=== PATIENT | male | born 1950 | race Caucasian/White ===

== ENCOUNTER 2018-08-19 11:21 | Inpatient (IN) | payer MEDICARE, OTHER ==
[~2018-08-19] VITALS: Ht 170.2 cm; Wt 73.5 kg
[2018-08-19] VITALS (13 sets, daily range): BP systolic 109–137; BP diastolic 62–73
[2018-08-19] MEDS ORDERED: aspirin 81mg tab.chew PO ONE ×2 (11:30→14:20)
[2018-08-19] MEDS ORDERED: heparin 10,000 units/1 ML INJ IV ONE ×2 (11:30→11:45)
[2018-08-19] MEDS ORDERED: nitroGLYCERIN 0.4mg SUBLingual tab SL PRN ×2 (11:30→14:05)
[2018-08-19] MEDS ORDERED: heparin 10,000 units/1 ML INJ IV PRN (11:30)
[2018-08-19 11:37] LABS: BASOPHILS % (AUTO) 0.3 % (0-1); EOSINOPHILS # (AUTO) 0.2 X10'3 (0-0.9); EOSINOPHILS % (AUTO) 2.1 % (0-6); HEMATOCRIT 45.3 % (42.0-52.0); HEMOGLOBIN 15.1 g/dl (14.0-17.9); LYMPHOCYTES # (AUTO) 3.1 X10'3 (1.1-4.8); LYMPHOCYTES % (AUTO) 42.8 % (21-51); MEAN CORPUSCULAR HEMOGLOBIN 31.3 PG (27.0-31.0); MEAN CORPUSCULAR HGB CONC 33.4 % (33.0-36.5); MEAN CORPUSCULAR VOLUME 93.8 FL (78-98); MONOCYTES # (AUTO) 0.6 X10'3 (0-0.9); MONOCYTES % (AUTO) 7.7 % (2-12); NEUTROPHILS # (AUTO) 3.4 X10'3 (1.8-7.7); NEUTROPHILS % (AUTO) 47.1 % (42-75); PLATELET COUNT 256 X10'3 (140-440); RED BLOOD COUNT 4.82 X10'6 (4.70-6.10); RED CELL DISTRIBUTION WIDTH 15.2 % (11.5-14.5); WHITE BLOOD COUNT 7.2 X10'3 (4.5-11.0)
[2018-08-19] MEDS ORDERED: iohexol 350 MG/1 ML 200ml bottle ONE (11:39)
[2018-08-19] MEDS ORDERED: iohexol 350 MG/ML 50ML vial IV ONE (11:39)
[2018-08-19] MEDS ORDERED: LIDOcaine 1% (10mg/ml)w/preservative injection 20ml MDV ONE (11:39)
[2018-08-19] MEDS ORDERED: ondansetron/PF 4mg/2ml inj IV ONE (11:40)
[2018-08-19] MEDS ORDERED: morphine 4 MG/ML inj SYRINge IV ONE (11:40)
[2018-08-19] MEDS: heparin 25,000 UNIT/250ml bag 250 ML IV SCH (11:43)
[2018-08-19] MEDS ORDERED: tirofiban 5mg in NS 100mL 100 ML IV ONE (12:08)
[2018-08-19] MEDS ORDERED: fentaNYL/PF 50MCG/1 ML 2ML syringe ONE (12:08)
[2018-08-19] MEDS ORDERED: midazolam 2 mg/2 ml injection ONE (12:08)
[2018-08-19 12:09] LABS: PARTIAL THROMBOPLASTIN TIME 23 SECONDS (22-32)
[2018-08-19 12:15] LABS: ALANINE AMINOTRANSFERASE 26 U/L (12-78); ALBUMIN 3.8 G/DL (3.4-5.0); ALBUMIN/GLOBULIN RATIO 1.1 (1.1-1.5); ALKALINE PHOSPHATASE 94 IU/L (46-116); ANION GAP 10 (8-16); ASPARTATE AMINO TRANSFERASE 25 U/L (10-37); BILIRUBIN,TOTAL 0.9 MG/DL (0.1-1.0); BLOOD UREA NITROGEN 10 MG/DL (7-18); BUN/CREATININE RATIO 11.6 (5.4-32.0); CALCIUM 8.6 MG/DL (8.5-10.1); CHLORIDE 104 MMOL/L (99-107); CREATININE 0.86 MG/DL (0.60-1.10); GLUCOSE 174 MG/DL (70-104); SODIUM 142 MMOL/L (135-145); TOTAL CARBON DIOXIDE 27.7 MMOL/L (24-32); TOTAL PROTEIN 7.3 G/DL (6.4-8.2); eGFR 88 ML/MIN
[2018-08-19 12:17] LABS: POTASSIUM 3.8 MMOL/L (3.5-5.1)
[2018-08-19 12:22] LABS: CHOLESTEROL 156 MG/DL (0-200); HDL CHOLESTEROL 52 MG/DL (35-60); LDL CHOLESTEROL 92 MG/DL (50-100); MAGNESIUM 2.1 MG/DL (1.5-2.4); TRIGLYCERIDES 91 MG/DL (20-135)
[2018-08-19] MEDS ORDERED: heparin 1,000unit/ml 10ml vial 10 ML ONE (12:30)
[2018-08-19] MEDS ORDERED: clopidogrel 300mg tablet ONE (13:13)
[2018-08-19] MEDS ORDERED: cyclobenzaprine 10mg tablet PO PRN (14:05)
[2018-08-19] MEDS ORDERED: acetaminophen 325mg tablet PO PRN (14:05)
[2018-08-19] MEDS ORDERED: magnesium hydroxide 30ml (MOM) UD suspension PO PRN (14:05)
[2018-08-19] MEDS ORDERED: proCHLORperazine 10 MG/2 ml inj IV PRN (14:05)
[2018-08-19] MEDS ORDERED: OXAZEpam 15mg capsule PO PRN (14:05)
[2018-08-19] MEDS ORDERED: morphine 4 MG/ML inj SYRINge IV PRN ×2 (14:25→18:55)
[2018-08-19] MEDS: tirofiban 5mg in NS 100mL 100 ML IV SCH ×2 (14:32→22:05)
[2018-08-19] MEDS: sodium chloride 0.45% 1,000 ML IV SCH (14:33)
[2018-08-19] MEDS ORDERED: nitroGLYCERIN-Tridil 50MG/D5W 250 ML IV SCH (15:10)
[2018-08-19] MEDS ORDERED: MESSAGE TO NURSING PO ONE (15:30)
[2018-08-19 16:29] LABS: HEMATOCRIT 43.2 % (42.0-52.0); HEMOGLOBIN 14.4 g/dl (14.0-17.9); MEAN CORPUSCULAR HEMOGLOBIN 31.3 PG (27.0-31.0); MEAN CORPUSCULAR HGB CONC 33.3 % (33.0-36.5); MEAN CORPUSCULAR VOLUME 93.9 FL (78-98); MEAN PLATELET VOLUME 7.8 FL (7.4-10.4); PLATELET COUNT 230 X10'3 (140-440); RED CELL DISTRIBUTION WIDTH 14.9 % (11.5-14.5); WHITE BLOOD COUNT 12.3 X10'3 (4.5-11.0)
[2018-08-19 16:52] LABS: PROTHROMBIN TIME 10.5 SECONDS (9.0-12.0)
[2018-08-19 16:54] LABS: PARTIAL THROMBOPLASTIN TIME 86 SECONDS (22-32)
[2018-08-19] MEDS ORDERED: FOLI0.4T2 PO (17:23)
[2018-08-19] MEDS ORDERED: METH2.5T PO (17:23)
[2018-08-19] MEDS ORDERED: ASPI-611 PO (17:23)
[2018-08-19] MEDS ORDERED: FINA5TAB11 PO (17:23)
[2018-08-19] MEDS ORDERED: FLO0.4C PO (17:23)
[2018-08-19] MEDS ORDERED: clopidogrel 300mg tablet PO ONE (18:00)
[2018-08-19 18:06] LABS: CLARITY,URINE CLEAR (Clear); COLOR,URINE YELLOW (Yellow); GLUCOSE, URINE NEGATIVE (Neg); KETONES,URINE 40 mg/dl (Neg); LEUKOCYTE ESTERASE ,URINE NEGATIVE (Neg); NITRITES, URINE NEGATIVE (Neg); OCCULT BLOOD,URINE LARGE (Neg); PH,URINE 5.5 (4.8-8.0); PROTEIN,URINE NEGATIVE (Neg); UA COLLECTION TYPE NON-SPECIFIED; UROBILINOGEN,URINE 0.2 E.U/dL (0.2-1.0)
[2018-08-19 18:12] LABS: BACTERIA,URINE NONE SEEN /HPF (Neg); MUCUS STRANDS NONE SEEN /LPF (Neg); RBC,URINE 0-2 /HPF (0-2); SQUAMOUS EPITHELIAL CELL,UR NONE SEEN /LPF (FEW); WBC,URINE NONE SEEN /HPF (0-4)
[2018-08-19] MEDS ORDERED: nitroGLYCERIN-Tridil 50MG/D5W 250 ML IV PRN (19:43)
[2018-08-19] MEDS ORDERED: HYDROcodone/acetaminophen 10/325mg tab PO PRN (20:00)
[2018-08-19] MEDS: metoprolol tartrate 25mg tablet PO SCH (20:00)
[2018-08-19] MEDS: docusate sod 100mg capsule PO SCH (20:00)
[2018-08-19] MEDS: HYDROcodone/acetaminophen 10/325mg tab PO PRN (22:07)
[2018-08-20] VITALS (24 sets, daily range): BP systolic 91–126; BP diastolic 50–68
[2018-08-20] MEDS: heparin 25,000 UNIT/250ml bag 250 ML IV SCH (00:44)
[2018-08-20] MEDS: HYDROcodone/acetaminophen 10/325mg tab PO PRN ×2 (04:52→20:40)
[2018-08-20] MEDS: tirofiban 5mg in NS 100mL 100 ML IV SCH ×3 (05:12→20:36)
[2018-08-20 05:29] LABS: BASOPHILS % (AUTO) 0.3 % (0-1); EOSINOPHILS # (AUTO) 0.1 X10'3 (0-0.9); EOSINOPHILS % (AUTO) 1.4 % (0-6); HEMATOCRIT 38.9 % (42.0-52.0); HEMOGLOBIN 13.2 g/dl (14.0-17.9); LYMPHOCYTES # (AUTO) 1.5 X10'3 (1.1-4.8); LYMPHOCYTES % (AUTO) 15.2 % (21-51); MEAN CORPUSCULAR HEMOGLOBIN 31.3 PG (27.0-31.0); MEAN CORPUSCULAR VOLUME 92.1 FL (78-98); MEAN PLATELET VOLUME 8.2 FL (7.4-10.4); MONOCYTES # (AUTO) 0.5 X10'3 (0-0.9); MONOCYTES % (AUTO) 4.7 % (2-12); NEUTROPHILS # (AUTO) 7.7 X10'3 (1.8-7.7); NEUTROPHILS % (AUTO) 78.4 % (42-75); PLATELET COUNT 241 X10'3 (140-440); RED BLOOD COUNT 4.22 X10'6 (4.70-6.10); RED CELL DISTRIBUTION WIDTH 15.2 % (11.5-14.5); WHITE BLOOD COUNT 9.8 X10'3 (4.5-11.0)
[2018-08-20] MEDS ORDERED: vancomycin/NS 1 GM ADD-VANTAGE 250 ML IV ONE (05:30)
[2018-08-20] MEDS: insulin Lispro (HumaLOG) vial - multi-dose SQ SCH ×3 (05:30→18:00)
[2018-08-20] MEDS ORDERED: dextrose 50%-water 50ml dispensing syringe IV PRN (05:30)
[2018-08-20] MEDS: insulin regular, human inj. 100 UNITS in normal saline 100ml IV soln 100 ML IV SCH ×2 (05:30)
[2018-08-20] MEDS ORDERED: MESSAGE TO NURSING PO ONE ×5 (05:30)
[2018-08-20] MEDS ORDERED: cefazolin/dext.iso 2gm/100ml 100 ML IV ONE (05:30)
[2018-08-20 06:01] LABS: ALBUMIN 3.1 G/DL (3.4-5.0); ANION GAP 11 (8-16); BLOOD UREA NITROGEN 10 MG/DL (7-18); BUN/CREATININE RATIO 14.1 (5.4-32.0); CHLORIDE 103 MMOL/L (99-107); CREATININE 0.71 MG/DL (0.60-1.10); GLUCOSE 166 MG/DL (70-104); POTASSIUM 3.6 MMOL/L (3.5-5.1); SODIUM 138 MMOL/L (135-145); eGFR > 90 ML/MIN
[2018-08-20] MEDS: mupirocin 2% nasal ointment 1gm UD NS SCH ×2 (08:00→20:00)
[2018-08-20] MEDS: aspirin 81mg tablet.DR PO SCH (08:00)
[2018-08-20] MEDS ORDERED: clopidogrel 75mg tablet PO SCH (08:00)
[2018-08-20] MEDS: metoprolol tartrate 25mg tablet PO SCH ×2 (08:00→20:00)
[2018-08-20] MEDS: docusate sod 100mg capsule PO SCH ×2 (08:47→20:00)
[2018-08-20] MEDS: lisinopril 2.5mg tablet PO SCH (08:48)
[2018-08-20] MEDS: atorvastatin 10mg tablet PO SCH (08:48)
[2018-08-20] MEDS: sodium chloride 0.45% 1,000 ML IV SCH (10:10)
[2018-08-20] MEDS ORDERED: FINA5TAB11 PO (13:14)
[2018-08-20] MEDS ORDERED: ASPI-611 PO (13:14)
[2018-08-20] MEDS ORDERED: METH2.5T PO (13:14)
[2018-08-20] MEDS ORDERED: FOL0.4T PO (13:14)
[2018-08-20] MEDS ORDERED: FLO0.4C PO (13:14)
[2018-08-21] VITALS (20 sets, daily range): BP systolic 90–141; BP diastolic 46–88
[2018-08-21] MEDS: sodium chloride 0.45% 1,000 ML IV SCH (05:25)
[2018-08-21] MEDS: tirofiban 5mg in NS 100mL 100 ML IV SCH ×3 (05:26→19:33)
[2018-08-21] MEDS: insulin regular, human inj. 100 UNITS in normal saline 100ml IV soln 100 ML IV SCH ×2 (05:30)
[2018-08-21] MEDS: lisinopril 2.5mg tablet PO SCH (08:00)
[2018-08-21] MEDS: metoprolol tartrate 25mg tablet PO SCH ×2 (08:00→20:43)
[2018-08-21] MEDS: insulin Lispro (HumaLOG) vial - multi-dose SQ SCH ×3 (09:00→18:00)
[2018-08-21] MEDS: docusate sod 100mg capsule PO SCH ×2 (09:22→20:00)
[2018-08-21] MEDS: atorvastatin 10mg tablet PO SCH (09:22)
[2018-08-21] MEDS: aspirin 81mg tablet.DR PO SCH (09:22)
[2018-08-21] MEDS ORDERED: heparin 25,000 UNIT/250ml bag 250 ML IV SCH (10:50)
[2018-08-21] MEDS ORDERED: heparin 10,000 units/1 ML INJ IV ONE (10:50)
[2018-08-21 12:07] LABS: BASOPHILS # (AUTO) 0.1 X10'3 (0-0.2); BASOPHILS % (AUTO) 0.8 % (0-1); EOSINOPHILS % (AUTO) 0.5 % (0-6); HEMATOCRIT 39.4 % (42.0-52.0); HEMOGLOBIN 13.2 g/dl (14.0-17.9); LYMPHOCYTES # (AUTO) 1.9 X10'3 (1.1-4.8); LYMPHOCYTES % (AUTO) 24.9 % (21-51); MEAN CORPUSCULAR HEMOGLOBIN 31.4 PG (27.0-31.0); MEAN CORPUSCULAR HGB CONC 33.6 % (33.0-36.5); MEAN CORPUSCULAR VOLUME 93.5 FL (78-98); MEAN PLATELET VOLUME 8.3 FL (7.4-10.4); MONOCYTES # (AUTO) 0.6 X10'3 (0-0.9); MONOCYTES % (AUTO) 7.9 % (2-12); NEUTROPHILS # (AUTO) 5.1 X10'3 (1.8-7.7); NEUTROPHILS % (AUTO) 65.9 % (42-75); PLATELET COUNT 213 X10'3 (140-440); RED BLOOD COUNT 4.21 X10'6 (4.70-6.10); RED CELL DISTRIBUTION WIDTH 15.2 % (11.5-14.5); WHITE BLOOD COUNT 7.8 X10'3 (4.5-11.0)
[2018-08-21 12:32] LABS: PARTIAL THROMBOPLASTIN TIME 27 SECONDS (22-32); PROTHROMBIN TIME 10.5 SECONDS (9.0-12.0)
[2018-08-21] MEDS: heparin 25,000 UNIT/250ml bag 250 ML IV SCH ×2 (15:02→20:42)
[2018-08-21] MEDS: heparin 10,000 units/1 ML INJ IV PRN (20:40)
[2018-08-21] MEDS: HYDROcodone/acetaminophen 10/325mg tab PO PRN (20:44)
[2018-08-22] VITALS (26 sets, daily range): BP systolic 83–124; BP diastolic 52–76
[2018-08-22] MEDS: sodium chloride 0.45% 1,000 ML IV SCH ×2 (02:10→22:10)
[2018-08-22 03:03] LABS: BASOPHILS % (AUTO) 0.3 % (0-1); EOSINOPHILS # (AUTO) 0.2 X10'3 (0-0.9); EOSINOPHILS % (AUTO) 2.2 % (0-6); HEMATOCRIT 40.2 % (42.0-52.0); HEMOGLOBIN 13.4 g/dl (14.0-17.9); LYMPHOCYTES # (AUTO) 2.3 X10'3 (1.1-4.8); LYMPHOCYTES % (AUTO) 32.1 % (21-51); MEAN CORPUSCULAR HEMOGLOBIN 31.3 PG (27.0-31.0); MEAN CORPUSCULAR HGB CONC 33.4 % (33.0-36.5); MEAN CORPUSCULAR VOLUME 93.8 FL (78-98); MEAN PLATELET VOLUME 8.1 FL (7.4-10.4); MONOCYTES # (AUTO) 0.7 X10'3 (0-0.9); MONOCYTES % (AUTO) 9.5 % (2-12); NEUTROPHILS # (AUTO) 4.1 X10'3 (1.8-7.7); NEUTROPHILS % (AUTO) 55.9 % (42-75); PLATELET COUNT 200 X10'3 (140-440); RED BLOOD COUNT 4.29 X10'6 (4.70-6.10); RED CELL DISTRIBUTION WIDTH 15.1 % (11.5-14.5); WHITE BLOOD COUNT 7.3 X10'3 (4.5-11.0)
[2018-08-22] MEDS: tirofiban 5mg in NS 100mL 100 ML IV SCH ×2 (03:12→10:51)
[2018-08-22 03:14] LABS: ALBUMIN 3.3 G/DL (3.4-5.0); ANION GAP 8 (8-16); BLOOD UREA NITROGEN 16 MG/DL (7-18); BUN/CREATININE RATIO 18.4 (5.4-32.0); CALCIUM 8.3 MG/DL (8.5-10.1); CHLORIDE 104 MMOL/L (99-107); CREATININE 0.87 MG/DL (0.60-1.10); GLUCOSE 130 MG/DL (70-104); POTASSIUM 3.7 MMOL/L (3.5-5.1); SODIUM 142 MMOL/L (135-145); eGFR 87 ML/MIN
[2018-08-22] MEDS: insulin regular, human inj. 100 UNITS in normal saline 100ml IV soln 100 ML IV SCH ×2 (05:30)
[2018-08-22] MEDS: lisinopril 2.5mg tablet PO SCH (08:00)
[2018-08-22] MEDS: metoprolol tartrate 25mg tablet PO SCH ×2 (08:00→20:19)
[2018-08-22] MEDS ORDERED: non-formulary drug (Aspirin (Aspir 81) 1 TAB) PO SCH (08:00)
[2018-08-22] MEDS: aspirin 81mg tablet.DR PO SCH (08:01)
[2018-08-22] MEDS: folic acid 0.4mg tablet PO SCH (08:01)
[2018-08-22] MEDS: atorvastatin 10mg tablet PO SCH (08:02)
[2018-08-22] MEDS: tamsulosin 0.4mg capsule PO SCH (08:02)
[2018-08-22] MEDS: finasteride 5mg tablet PO SCH (08:02)
[2018-08-22] MEDS: docusate sod 100mg capsule PO SCH ×2 (08:02→20:18)
[2018-08-22] MEDS: insulin Lispro (HumaLOG) vial - multi-dose SQ SCH ×3 (09:00→18:00)
[2018-08-22] MEDS: heparin 10,000 units/1 ML INJ IV PRN (11:18)
[2018-08-22] MEDS: heparin 25,000 UNIT/250ml bag 250 ML IV SCH ×2 (11:19→18:22)
[2018-08-23] VITALS (23 sets, daily range): BP systolic 87–117; BP diastolic 56–74
[2018-08-23] MEDS: heparin 25,000 UNIT/250ml bag 250 ML IV SCH ×2 (05:29→06:04)
[2018-08-23] MEDS: insulin regular, human inj. 100 UNITS in normal saline 100ml IV soln 100 ML IV SCH ×2 (05:30)
[2018-08-23 05:44] LABS: BASOPHILS % (AUTO) 0.5 % (0-1); EOSINOPHILS # (AUTO) 0.2 X10'3 (0-0.9); EOSINOPHILS % (AUTO) 2.9 % (0-6); HEMATOCRIT 37.2 % (42.0-52.0); HEMOGLOBIN 12.5 g/dl (14.0-17.9); LYMPHOCYTES # (AUTO) 2.4 X10'3 (1.1-4.8); LYMPHOCYTES % (AUTO) 35.1 % (21-51); MEAN CORPUSCULAR HEMOGLOBIN 31.4 PG (27.0-31.0); MEAN CORPUSCULAR HGB CONC 33.5 % (33.0-36.5); MEAN CORPUSCULAR VOLUME 93.9 FL (78-98); MEAN PLATELET VOLUME 8.7 FL (7.4-10.4); MONOCYTES # (AUTO) 0.6 X10'3 (0-0.9); MONOCYTES % (AUTO) 9.4 % (2-12); NEUTROPHILS # (AUTO) 3.5 X10'3 (1.8-7.7); NEUTROPHILS % (AUTO) 52.1 % (42-75); PLATELET COUNT 208 X10'3 (140-440); RED BLOOD COUNT 3.97 X10'6 (4.70-6.10); RED CELL DISTRIBUTION WIDTH 14.7 % (11.5-14.5); WHITE BLOOD COUNT 6.8 X10'3 (4.5-11.0)
[2018-08-23] MEDS: tamsulosin 0.4mg capsule PO SCH (07:43)
[2018-08-23] MEDS: docusate sod 100mg capsule PO SCH ×2 (07:44→20:21)
[2018-08-23] MEDS: atorvastatin 10mg tablet PO SCH (07:44)
[2018-08-23] MEDS: aspirin 81mg tablet.DR PO SCH (07:44)
[2018-08-23] MEDS: finasteride 5mg tablet PO SCH (07:44)
[2018-08-23] MEDS: folic acid 0.4mg tablet PO SCH (07:44)
[2018-08-23] MEDS: lisinopril 2.5mg tablet PO SCH (07:45)
[2018-08-23] MEDS: metoprolol tartrate 25mg tablet PO SCH ×2 (07:47→20:20)
[2018-08-23] MEDS: insulin Lispro (HumaLOG) vial - multi-dose SQ SCH ×3 (09:00→17:55)
[2018-08-23 16:55] LABS: ABG BASE EXCESS 0.4 mmol/L (-2.0-3.0); ABG HCO3 23.2 mmol/L (22.0-26.0); ABG OXYGEN SATURATION 94.3 % (95-98); ABG PCO2 (T) 31.5 mmHg (35.0-48.0); ABG PH (T) 7.485 (7.350-7.450); ABG PO2 (T) 67.2 mmHg (83-108); ALLEN'S TEST Positive; FCOHb 0.4 % (0.5-1.5); FO2Hb 93.9 % (94-100); PATIENT TEMPERATURE 36.7; TOTAL HEMOGLOBIN 13.2 G/dl (14.0-18.0)
[2018-08-23] MEDS: sodium chloride 0.45% 1,000 ML IV SCH (18:10)
[2018-08-23 18:18] LABS: PARTIAL THROMBOPLASTIN TIME 53 SECONDS (22-32)
[2018-08-23] MEDS ORDERED: MESSAGE TO NURSING PO ONE ×2 (19:45)
[2018-08-23] MEDS ORDERED: ringers solution, lacted 1,000 ML IV ONE (19:57)
[2018-08-23] MEDS: mupirocin 2% nasal ointment 1gm UD NS SCH (20:21)
[2018-08-24] VITALS (24 sets, daily range): BP systolic 95–146; BP diastolic 50–98
[2018-08-24] MEDS ORDERED: LORazepam 2 mg/ml vial IV ONE (06:00)
[2018-08-24] MEDS ORDERED: famotidine 20mg tablet PO ONE (06:00)
[2018-08-24 06:04] LABS: BASOPHILS % (AUTO) 0.3 % (0-1); EOSINOPHILS # (AUTO) 0.2 X10'3 (0-0.9); EOSINOPHILS % (AUTO) 3.1 % (0-6); HEMATOCRIT 36.3 % (42.0-52.0); HEMOGLOBIN 12.3 g/dl (14.0-17.9); LYMPHOCYTES # (AUTO) 2.1 X10'3 (1.1-4.8); LYMPHOCYTES % (AUTO) 34.9 % (21-51); MEAN CORPUSCULAR HEMOGLOBIN 31.6 PG (27.0-31.0); MEAN CORPUSCULAR HGB CONC 33.9 % (33.0-36.5); MEAN CORPUSCULAR VOLUME 93.2 FL (78-98); MONOCYTES # (AUTO) 0.6 X10'3 (0-0.9); NEUTROPHILS # (AUTO) 3.2 X10'3 (1.8-7.7); NEUTROPHILS % (AUTO) 52.7 % (42-75); PLATELET COUNT 198 X10'3 (140-440); RED CELL DISTRIBUTION WIDTH 14.9 % (11.5-14.5); WHITE BLOOD COUNT 6.2 X10'3 (4.5-11.0)
[2018-08-24 06:21] LABS: PROTHROMBIN TIME 10.4 SECONDS (9.0-12.0)
[2018-08-24 06:26] LABS: ALANINE AMINOTRANSFERASE 38 U/L (12-78); ALBUMIN 3.1 G/DL (3.4-5.0); ALKALINE PHOSPHATASE 88 IU/L (46-116); ANION GAP 8 (8-16); ASPARTATE AMINO TRANSFERASE 36 U/L (10-37); BILIRUBIN,TOTAL 0.8 MG/DL (0.1-1.0); BLOOD UREA NITROGEN 14 MG/DL (7-18); BUN/CREATININE RATIO 18.7 (5.4-32.0); CALCIUM 8.4 MG/DL (8.5-10.1); CHLORIDE 107 MMOL/L (99-107); CREATININE 0.75 MG/DL (0.60-1.10); GLUCOSE 131 MG/DL (70-104); POTASSIUM 3.8 MMOL/L (3.5-5.1); SODIUM 142 MMOL/L (135-145); TOTAL CARBON DIOXIDE 27.3 MMOL/L (24-32); TOTAL PROTEIN 6.3 G/DL (6.4-8.2); eGFR > 90 ML/MIN
[2018-08-24] MEDS ORDERED: ringers solution, lacted 1,000 ML IV SCH (06:30)
[2018-08-24] MEDS ORDERED: papaverine 30 mg/ml 2ml inj. IA ONE (06:30)
[2018-08-24] MEDS ORDERED: heparin 10,000 units/1 ML INJ IR ONE (06:30)
[2018-08-24] MEDS ORDERED: vancomycin/NS 1 GM ADD-VANTAGE 250 ML IV ONE (06:30)
[2018-08-24] MEDS ORDERED: cefazolin/dext.iso 2gm/50ml 50 ML IV ONE (06:30)
[2018-08-24] MEDS ORDERED: NORepinephrine bitartrate 8 MG in NS 250 ML BAG (32 mcg/ml) IV ONE (06:35)
[2018-08-24] MEDS ORDERED: nitroGLYCERIN in D5W 50mg/250ml (Tridil) infusion IV ONE (06:35)
[2018-08-24] MEDS ORDERED: aminocaproic acid 250 MG/1 ML inj. ONE ×2 (06:35→09:00)
[2018-08-24] MEDS ORDERED: protamine sulf. 10mg/ml inj. IV ONE (06:35)
[2018-08-24] MEDS ORDERED: sevoflurane 250ml liquid IH ONE (06:35)
[2018-08-24] MEDS ORDERED: INSULIN R 100 UNIT in NS 100ML (1 UNIT/1 ML) BAG IV ONE (06:35)
[2018-08-24] MEDS ORDERED: MIDAZolam 1mg/ml 10ml vial ONE (06:41)
[2018-08-24] MEDS ORDERED: SUfentanil 50mcg/ml 1ml amp IV ONE ×2 (06:42)
[2018-08-24] MEDS ORDERED: pancuronium br 1mg/ml inj IV ONE (07:43)
[2018-08-24] MEDS ORDERED: etomidate 2mg/ml inj. ONE (07:43)
[2018-08-24 07:45] LABS: ABG BASE EXCESS 0.1 mmol/L (-2.0-3.0); ABG HCO3 23.9 mmol/L (22.0-26.0); ABG OXYGEN SATURATION 99.5 % (95-98); ABG PCO2 35.6 mmHg (35.0-45.0); ABG PH 7.444 (7.350-7.450); ABG PO2 352.6 mmHg (60.0-100.0); CL (ABG) 109 mmol/L (99-107); FCOHb 0.6 % (0.5-1.5); FO2Hb 98.9 % (94-100); GLUCOSE (ABG) 126 mg/dl (70-105); IONIZED CA (ABG) 1.09 mmol/L (1.03-1.32); K (ABG) 3.8 mmol/L (3.3-5.1); NA (ABG) 137 mmol/L (135-145); TOTAL HEMOGLOBIN 11.8 G/dl (14.0-18.0)
[2018-08-24] MEDS: atorvastatin 10mg tablet PO SCH (08:00)
[2018-08-24] MEDS: folic acid 0.4mg tablet PO SCH (08:00)
[2018-08-24] MEDS: docusate sod 100mg capsule PO SCH ×2 (08:00→19:58)
[2018-08-24] MEDS: lisinopril 2.5mg tablet PO SCH (08:00)
[2018-08-24] MEDS: finasteride 5mg tablet PO SCH (08:00)
[2018-08-24] MEDS: tamsulosin 0.4mg capsule PO SCH (08:00)
[2018-08-24] MEDS: aspirin 81mg tablet.DR PO SCH (08:00)
[2018-08-24] MEDS: mupirocin 2% nasal ointment 1gm UD NS SCH ×2 (08:00→19:56)
[2018-08-24] MEDS: metoprolol tartrate 25mg tablet PO SCH (08:00)
[2018-08-24 08:21] LABS: ACT @ 1.70 U 251 SEC (193-297); ACT @ 2.84 U 372 SEC (260-420); BASELINE ACT 137 SEC (101-148); PATIENT WEIGHT 78.0k KG
[2018-08-24 08:46] LABS: ABG BASE EXCESS VENOUS -0.6 mmol/L; ABG HCO3 VENOUS 25.2 mmol/L; ABG PCO2 VENOUS 46.1 mmHg; ABG PO2 VENOUS 38.2 mmHg; CL (ABG) 107 mmol/L (99-107); FCOHb VENOUS 0.6 %; FHHb VENOUS 30.4 %; FMetHb VENOUS 0.6 %; FO2Hb VENOUS 68.4 %; GLUCOSE (ABG) 153 mg/dl (70-105); IONIZED CA (ABG) 1.09 mmol/L (1.03-1.32); K (ABG) 3.9 mmol/L (3.3-5.1); NA (ABG) 129 mmol/L (135-145); TOTAL HEMOGLOBIN 11.4 G/dl (14.0-18.0)
[2018-08-24 09:00] LABS: ABG BASE EXCESS 0.4 mmol/L (-2.0-3.0); ABG HCO3 25.3 mmol/L (22.0-26.0); ABG OXYGEN SATURATION 99.1 % (95-98); ABG PCO2 42.2 mmHg (35.0-45.0); ABG PH 7.396 (7.350-7.450); ABG PO2 460.7 mmHg (60.0-100.0); CL (ABG) 102 mmol/L (99-107); FCOHb 0.3 % (0.5-1.5); FMetHb 0.7 % (0.3-1.12); FO2Hb 98.1 % (94-100); GLUCOSE (ABG) 143 mg/dl (70-105); IONIZED CA (ABG) 0.93 mmol/L (1.03-1.32); NA (ABG) 128 mmol/L (135-145); TOTAL HEMOGLOBIN 8.9 G/dl (14.0-18.0)
[2018-08-24] MEDS ORDERED: LIDOcaine 2% (20 mg/ml) 5ml cardiac syringe ONE (09:00)
[2018-08-24] MEDS ORDERED: methylPREDNISolone sod succ 1000mg vial ONE (09:00)
[2018-08-24] MEDS ORDERED: sodium bicarbonate (8.4%) 1 mEq/ml syringe ONE (09:00)
[2018-08-24] MEDS ORDERED: papaverine 30 mg/ml 2ml inj. ONE (09:00)
[2018-08-24] MEDS ORDERED: heparin 1,000 units/ml 10ml inj ONE (09:00)
[2018-08-24] MEDS ORDERED: magnesium sulf 1 GM/2 ML ONE (09:00)
[2018-08-24] MEDS ORDERED: albumin (human) 25% 100 ML IV solution IV ONE (09:00)
[2018-08-24] MEDS: insulin Lispro (HumaLOG) vial - multi-dose SQ SCH ×3 (09:00→18:00)
[2018-08-24] MEDS ORDERED: potassium Cl 2 mEq/ml inj IV ONE (09:00)
[2018-08-24] MEDS ORDERED: heparin 10,000 units/1 ML INJ ONE (09:00)
[2018-08-24 09:26] LABS: ABG BASE EXCESS 0.6 mmol/L (-2.0-3.0); ABG HCO3 24.8 mmol/L (22.0-26.0); ABG OXYGEN SATURATION 99.1 % (95-98); ABG PCO2 38.2 mmHg (35.0-45.0); ABG PO2 504.9 mmHg (60.0-100.0); CL (ABG) 106 mmol/L (99-107); FCOHb 0.3 % (0.5-1.5); FMetHb 0.7 % (0.3-1.12); FO2Hb 98.1 % (94-100); GLUCOSE (ABG) 169 mg/dl (70-105); IONIZED CA (ABG) 1.01 mmol/L (1.03-1.32); NA (ABG) 126 mmol/L (135-145); TOTAL HEMOGLOBIN 9.9 G/dl (14.0-18.0)
[2018-08-24 10:21] LABS: ABG BASE EXCESS VENOUS 1.8 mmol/L; ABG HCO3 VENOUS 26.4 mmol/L; ABG PCO2 VENOUS 41.6 mmHg; CL (ABG) 107 mmol/L (99-107); FCOHb VENOUS 0.6 %; FMetHb VENOUS 0.3 %; FO2Hb VENOUS 71.1 %; GLUCOSE (ABG) 155 mg/dl (70-105); IONIZED CA (ABG) 1.23 mmol/L (1.03-1.32); K (ABG) 4.3 mmol/L (3.3-5.1); NA (ABG) 135 mmol/L (135-145)
[2018-08-24] MEDS ORDERED: ePHEDrine 50MG/ML INJ. ONE (10:29)
[2018-08-24 10:31] LABS: ACTIVATED CLOTTING TIME 119 SEC (101-148)
[2018-08-24] MEDS ORDERED: albumin (Human) 5% 250ml 250 ML IV ONE (10:36)
[2018-08-24] MEDS ORDERED: nitroGLYCERIN-Tridil 50MG/D5W 250 ML IV PRN (10:58)
[2018-08-24] MEDS ORDERED: DOPamine 400mg/D5W 250ml 250 ML IV PRN (10:58)
[2018-08-24] MEDS ORDERED: niCARDipine-NS 40mg/200ml IVPB 200 ML IV PRN (10:58)
[2018-08-24] MEDS ORDERED: acetaminophen 325mg tablet PO PRN (11:00)
[2018-08-24] MEDS ORDERED: albumin (Human) 5% 250ml 250 ML IV PRN (11:00)
[2018-08-24] MEDS ORDERED: sodium phosphate inj. 15 MMOL in dextrose 5%-water 150 ML IV PRN (11:00)
[2018-08-24] MEDS ORDERED: magnesium 4gm in 100ml NS 100 ML IV PRN (11:00)
[2018-08-24] MEDS ORDERED: normal saline 250ml IV soln 250 ML IV PRN (11:00)
[2018-08-24] MEDS ORDERED: metoclopramide 5 mg/ml inj IV PRN (11:00)
[2018-08-24] MEDS ORDERED: dextrose 50%-water 50ml dispensing syringe IV PRN (11:00)
[2018-08-24] MEDS ORDERED: HYDROcodone/acetaminophen 10/325mg tab PO PRN (11:00)
[2018-08-24] MEDS ORDERED: potassium Cl 20mEq/100mL bag 100 ML IV PRN (11:00)
[2018-08-24] MEDS ORDERED: ondansetron/PF 4mg/2ml inj IV PRN (11:00)
[2018-08-24] MEDS ORDERED: Neutra Phos packet PO PRN (11:00)
[2018-08-24] MEDS ORDERED: sodium phosphate inj. 30 MMOL in dextrose 5%-water 250 ML IV PRN (11:00)
[2018-08-24] MEDS ORDERED: morphine 4 MG/ML inj SYRINge IV PRN ×2 (11:00)
[2018-08-24] MEDS ORDERED: magnesium hydroxide 30ml (MOM) UD suspension PO PRN (11:00)
[2018-08-24] MEDS ORDERED: pantoprazole 40 MG vial IV ONE (11:00)
[2018-08-24] MEDS ORDERED: insulin regular, human inj. 100 UNITS in normal saline 100ml IV soln 100 ML IV SCH ×2 (11:00)
[2018-08-24 11:25] LABS: ABG BASE EXCESS -2.6 mmol/L (-2.0-3.0); ABG HCO3 21.5 mmol/L (22.0-26.0); ABG PH (T) 7.415 (7.350-7.450); ABG PO2 (T) 114.8 mmHg (83-108); MINUTE VOLUME 8 L/min; PEEP 5 cm H2O; RESPIRATORY RATE 12 b/min; RESPIRATORY RATE (OBSERVED) 12 b/min; TIDAL VOLUME 550 mL
[2018-08-24 11:37] LABS: BASOPHILS % (AUTO) 0 % (0-1); EOSINOPHILS # (AUTO) 0.3 X10'3 (0-0.9); HEMATOCRIT 33.1 % (42.0-52.0); HEMOGLOBIN 11.1 g/dl (14.0-17.9); LYMPHOCYTES # (AUTO) 0.7 X10'3 (1.1-4.8); LYMPHOCYTES % (AUTO) 4.8 % (21-51); MEAN CORPUSCULAR HEMOGLOBIN 31.6 PG (27.0-31.0); MEAN CORPUSCULAR HGB CONC 33.6 % (33.0-36.5); MEAN PLATELET VOLUME 8.5 FL (7.4-10.4); MONOCYTES # (AUTO) 0.6 X10'3 (0-0.9); NEUTROPHILS # (AUTO) 12.4 X10'3 (1.8-7.7); NEUTROPHILS % (AUTO) 89.2 % (42-75); PLATELET COUNT 171 X10'3 (140-440); RED BLOOD COUNT 3.52 X10'6 (4.70-6.10); RED CELL DISTRIBUTION WIDTH 14.8 % (11.5-14.5); WHITE BLOOD COUNT 13.9 X10'3 (4.5-11.0)
[2018-08-24 11:45] LABS: INR 1.1 INR; PARTIAL THROMBOPLASTIN TIME 28 SECONDS (22-32); PROTHROMBIN TIME 11.2 SECONDS (9.0-12.0)
[2018-08-24 11:59] LABS: ALANINE AMINOTRANSFERASE 32 U/L (12-78); ALBUMIN 3.2 G/DL (3.4-5.0); ALBUMIN/GLOBULIN RATIO 1.3 (1.1-1.5); ALKALINE PHOSPHATASE 76 IU/L (46-116); ANION GAP 9 (8-16); ASPARTATE AMINO TRANSFERASE 57 U/L (10-37); BLOOD UREA NITROGEN 12 MG/DL (7-18); CALCIUM 8.8 MG/DL (8.5-10.1); CHLORIDE 108 MMOL/L (99-107); CREATININE 0.92 MG/DL (0.60-1.10); GLUCOSE 133 MG/DL (70-104); MAGNESIUM 3.6 MG/DL (1.5-2.4); PHOSPHORUS 2.3 MG/DL (2.3-4.5); POTASSIUM 3.9 MMOL/L (3.5-5.1); SODIUM 143 MMOL/L (135-145); TOTAL CARBON DIOXIDE 25.8 MMOL/L (24-32); TOTAL PROTEIN 5.7 G/DL (6.4-8.2); eGFR 81 ML/MIN
[2018-08-24] MEDS: sodium chloride 0.45% 1,000 ML IV SCH (12:21)
[2018-08-24] MEDS: insulin regular, human inj. 100 UNITS in normal saline 100ml IV soln 100 ML IV SCH ×4 (12:21→13:18)
[2018-08-24] MEDS: potassium Cl 20mEq/100mL bag 100 ML IV PRN (12:45)
[2018-08-24] MEDS ORDERED: potassium phosphate inj 15 MMOL in normal saline 250ml IV soln 245 ML IV ONE (13:00)
[2018-08-24] MEDS: NORepinephrine 8mg/ 250ml NS 250 ML IV SCH (15:10)
[2018-08-24] MEDS: ceFAZolin/D5W- 1GM premix 50 ML IV SCH ×2 (15:42→23:55)
[2018-08-24 16:50] LABS: BASOPHILS % (AUTO) 0 % (0-1); EOSINOPHILS # (AUTO) 0.2 X10'3 (0-0.9); EOSINOPHILS % (AUTO) 1.9 % (0-6); HEMATOCRIT 34.1 % (42.0-52.0); HEMOGLOBIN 11.5 g/dl (14.0-17.9); LYMPHOCYTES # (AUTO) 0.4 X10'3 (1.1-4.8); LYMPHOCYTES % (AUTO) 3.2 % (21-51); MEAN CORPUSCULAR HEMOGLOBIN 31.4 PG (27.0-31.0); MEAN CORPUSCULAR HGB CONC 33.6 % (33.0-36.5); MEAN CORPUSCULAR VOLUME 93.5 FL (78-98); MEAN PLATELET VOLUME 8.6 FL (7.4-10.4); MONOCYTES # (AUTO) 0.2 X10'3 (0-0.9); MONOCYTES % (AUTO) 1.8 % (2-12); NEUTROPHILS % (AUTO) 93.1 % (42-75); PLATELET COUNT 189 X10'3 (140-440); RED BLOOD COUNT 3.65 X10'6 (4.70-6.10); RED CELL DISTRIBUTION WIDTH 14.9 % (11.5-14.5); WHITE BLOOD COUNT 12.9 X10'3 (4.5-11.0)
[2018-08-24 17:02] LABS: ALBUMIN 3.2 G/DL (3.4-5.0); ANION GAP 11 (8-16); BLOOD UREA NITROGEN 12 MG/DL (7-18); BUN/CREATININE RATIO 12.4 (5.4-32.0); CHLORIDE 108 MMOL/L (99-107); CREATININE 0.97 MG/DL (0.60-1.10); GLUCOSE 182 MG/DL (70-104); MAGNESIUM 2.4 MG/DL (1.5-2.4); PHOSPHORUS 3.2 MG/DL (2.3-4.5); POTASSIUM 3.8 MMOL/L (3.5-5.1); SODIUM 144 MMOL/L (135-145); TOTAL CARBON DIOXIDE 25.4 MMOL/L (24-32); eGFR 77 ML/MIN
[2018-08-24 17:05] LABS: ABG BASE EXCESS -0.7 mmol/L (-2.0-3.0); ABG HCO3 23.6 mmol/L (22.0-26.0); ABG PCO2 (T) 36.7 mmHg (35.0-48.0); ABG PH (T) 7.424 (7.350-7.450); ABG PO2 (T) 73.8 mmHg (83-108); FCOHb 0.3 % (0.5-1.5); FO2Hb 94.7 % (94-100); MINUTE VOLUME 8 L/min; PATIENT TEMPERATURE 36.4; PEEP 5 cm H2O; RESPIRATORY RATE (OBSERVED) 13 b/min; TOTAL HEMOGLOBIN 12.4 G/dl (14.0-18.0)
[2018-08-24] MEDS: HYDROcodone/acetaminophen 10/325mg tab PO PRN ×2 (18:48→23:56)
[2018-08-24] MEDS: vancomycin/NS 1 GM ADD-VANTAGE 250 ML IV SCH (19:56)
[2018-08-25] VITALS (23 sets, daily range): BP systolic 100–131; BP diastolic 47–73
[2018-08-25 02:31] LABS: BASOPHILS % (AUTO) 0 % (0-1); EOSINOPHILS % (AUTO) 0 % (0-6); HEMATOCRIT 32.4 % (42.0-52.0); HEMOGLOBIN 11.3 g/dl (14.0-17.9); LYMPHOCYTES # (AUTO) 0.6 X10'3 (1.1-4.8); LYMPHOCYTES % (AUTO) 3.8 % (21-51); MEAN CORPUSCULAR HEMOGLOBIN 32.5 PG (27.0-31.0); MEAN CORPUSCULAR HGB CONC 34.7 % (33.0-36.5); MEAN CORPUSCULAR VOLUME 93.5 FL (78-98); MONOCYTES # (AUTO) 0.5 X10'3 (0-0.9); MONOCYTES % (AUTO) 3.2 % (2-12); NEUTROPHILS # (AUTO) 13.6 X10'3 (1.8-7.7); PLATELET COUNT 168 X10'3 (140-440); RED BLOOD COUNT 3.47 X10'6 (4.70-6.10); RED CELL DISTRIBUTION WIDTH 14.1 % (11.5-14.5); WHITE BLOOD COUNT 14.7 X10'3 (4.5-11.0)
[2018-08-25 02:43] LABS: PARTIAL THROMBOPLASTIN TIME 26 SECONDS (22-32); PROTHROMBIN TIME 10.6 SECONDS (9.0-12.0)
[2018-08-25 02:46] LABS: ALANINE AMINOTRANSFERASE 35 U/L (12-78); ALBUMIN 3.2 G/DL (3.4-5.0); ALBUMIN/GLOBULIN RATIO 1.1 (1.1-1.5); ALKALINE PHOSPHATASE 70 IU/L (46-116); ANION GAP 9 (8-16); ASPARTATE AMINO TRANSFERASE 49 U/L (10-37); BILIRUBIN,TOTAL 0.8 MG/DL (0.1-1.0); BLOOD UREA NITROGEN 14 MG/DL (7-18); BUN/CREATININE RATIO 16.1 (5.4-32.0); CALCIUM 7.9 MG/DL (8.5-10.1); CHLORIDE 108 MMOL/L (99-107); CREATININE 0.87 MG/DL (0.60-1.10); GLUCOSE 140 MG/DL (70-104); MAGNESIUM 2.2 MG/DL (1.5-2.4); PHOSPHORUS 3.8 MG/DL (2.3-4.5); POTASSIUM 3.7 MMOL/L (3.5-5.1); SODIUM 143 MMOL/L (135-145); eGFR 87 ML/MIN
[2018-08-25] MEDS: potassium Cl 20mEq/100mL bag 100 ML IV PRN ×2 (03:08→05:10)
[2018-08-25] MEDS: insulin regular, human inj. 100 UNITS in normal saline 100ml IV soln 100 ML IV SCH ×2 (03:10)
[2018-08-25] MEDS: magnesium 1gm/100ml D5W IVPB 100 ML IV PRN ×2 (04:07→06:07)
[2018-08-25] MEDS: HYDROcodone/acetaminophen 10/325mg tab PO PRN ×2 (06:53→21:01)
[2018-08-25] MEDS: tamsulosin 0.4mg capsule PO SCH (07:59)
[2018-08-25] MEDS: folic acid 0.4mg tablet PO SCH (07:59)
[2018-08-25] MEDS: mupirocin 2% nasal ointment 1gm UD NS SCH ×2 (07:59→20:20)
[2018-08-25] MEDS: atorvastatin 10mg tablet PO SCH (07:59)
[2018-08-25] MEDS: aspirin 325mg tablet, delayed-release (Ecotrin) PO SCH (07:59)
[2018-08-25] MEDS: docusate sod 100mg capsule PO SCH ×2 (07:59→20:20)
[2018-08-25] MEDS: vancomycin/NS 1 GM ADD-VANTAGE 250 ML IV SCH ×2 (08:00→20:20)
[2018-08-25] MEDS: metoprolol tartrate 12.5mg (1/2 tablet) PO SCH ×2 (08:00→20:20)
[2018-08-25] MEDS: ceFAZolin/D5W- 1GM premix 50 ML IV SCH ×3 (08:00→23:46)
[2018-08-25] MEDS: finasteride 5mg tablet PO SCH (09:26)
[2018-08-25] MEDS: insulin Lispro (HumaLOG) vial - multi-dose SQ SCH ×3 (09:28→20:32)
[2018-08-25] MEDS ORDERED: furosemide 40mg/4ml inj IV ONE (11:50)
[2018-08-25] MEDS ORDERED: dextrose ORAL solution 15 GM/59 ML bottle PO PRN ×2 (12:50)
[2018-08-25] MEDS ORDERED: dextrose 50%-water 50ml dispensing syringe IV PRN ×2 (12:50)
[2018-08-25] MEDS ORDERED: glucagon, human recombinant 1mg kit SUBCUT PRN (12:50)
[2018-08-25 13:11] LABS: MAGNESIUM 2.5 MG/DL (1.5-2.4); POTASSIUM 4.5 MMOL/L (3.5-5.1)
[2018-08-25] MEDS: insulin glargine (Lantus) pen - multi-dose SQ SCH (20:31)
[2018-08-26] VITALS (24 sets, daily range): BP systolic 99–136; BP diastolic 61–80
[2018-08-26] MEDS: HYDROcodone/acetaminophen 10/325mg tab PO PRN ×2 (01:54→20:07)
[2018-08-26 02:29] LABS: BASOPHILS % (AUTO) 0 % (0-1); EOSINOPHILS # (AUTO) 0.2 X10'3 (0-0.9); EOSINOPHILS % (AUTO) 1.4 % (0-6); HEMATOCRIT 29.7 % (42.0-52.0); HEMOGLOBIN 9.9 g/dl (14.0-17.9); LYMPHOCYTES # (AUTO) 0.9 X10'3 (1.1-4.8); LYMPHOCYTES % (AUTO) 5.3 % (21-51); MEAN CORPUSCULAR HEMOGLOBIN 31.4 PG (27.0-31.0); MEAN CORPUSCULAR HGB CONC 33.2 % (33.0-36.5); MEAN CORPUSCULAR VOLUME 94.6 FL (78-98); MONOCYTES # (AUTO) 0.9 X10'3 (0-0.9); MONOCYTES % (AUTO) 5.6 % (2-12); NEUTROPHILS # (AUTO) 14.2 X10'3 (1.8-7.7); NEUTROPHILS % (AUTO) 87.7 % (42-75); PLATELET COUNT 168 X10'3 (140-440); RED BLOOD COUNT 3.14 X10'6 (4.70-6.10); RED CELL DISTRIBUTION WIDTH 15.4 % (11.5-14.5); WHITE BLOOD COUNT 16.2 X10'3 (4.5-11.0)
[2018-08-26 03:10] LABS: ANION GAP 5 (8-16); BLOOD UREA NITROGEN 19 MG/DL (7-18); BUN/CREATININE RATIO 21.1 (5.4-32.0); CALCIUM 7.7 MG/DL (8.5-10.1); CHLORIDE 103 MMOL/L (99-107); GLUCOSE 205 MG/DL (70-104); MAGNESIUM 2.2 MG/DL (1.5-2.4); POTASSIUM 4.7 MMOL/L (3.5-5.1); SODIUM 139 MMOL/L (135-145); TOTAL CARBON DIOXIDE 30.7 MMOL/L (24-32); eGFR 83 ML/MIN
[2018-08-26] MEDS ORDERED: magnesium 2GM in 50ml NS 50 ML IV ONE (04:10)
[2018-08-26] MEDS: atorvastatin 10mg tablet PO SCH (08:05)
[2018-08-26] MEDS: metoprolol tartrate 12.5mg (1/2 tablet) PO SCH ×2 (08:05→20:07)
[2018-08-26] MEDS: docusate sod 100mg capsule PO SCH ×2 (08:05→20:07)
[2018-08-26] MEDS: finasteride 5mg tablet PO SCH (08:05)
[2018-08-26] MEDS: pantoprazole 40mg Tablet.DR PO SCH (08:05)
[2018-08-26] MEDS: folic acid 0.4mg tablet PO SCH (08:05)
[2018-08-26] MEDS: aspirin 325mg tablet, delayed-release (Ecotrin) PO SCH (08:05)
[2018-08-26] MEDS: tamsulosin 0.4mg capsule PO SCH (08:05)
[2018-08-26] MEDS: mupirocin 2% nasal ointment 1gm UD NS SCH (08:05)
[2018-08-26] MEDS: insulin Lispro (HumaLOG) vial - multi-dose SQ SCH ×3 (09:29→19:18)
[2018-08-26] MEDS: sodium chloride 0.45% 1,000 ML IV SCH (10:58)
[2018-08-26] MEDS: NORepinephrine 8mg/ 250ml NS 250 ML IV SCH (13:34)
[2018-08-26] MEDS: insulin glargine (Lantus) pen - multi-dose SQ SCH (20:32)
[2018-08-27] VITALS (24 sets, daily range): BP systolic 90–134; BP diastolic 56–76
[2018-08-27 03:42] LABS: BASOPHILS % (AUTO) 0.1 % (0-1); EOSINOPHILS # (AUTO) 0.2 X10'3 (0-0.9); EOSINOPHILS % (AUTO) 1.7 % (0-6); HEMATOCRIT 29.9 % (42.0-52.0); HEMOGLOBIN 9.8 g/dl (14.0-17.9); LYMPHOCYTES # (AUTO) 1.6 X10'3 (1.1-4.8); LYMPHOCYTES % (AUTO) 12.2 % (21-51); MEAN CORPUSCULAR HEMOGLOBIN 31.1 PG (27.0-31.0); MEAN CORPUSCULAR HGB CONC 32.9 % (33.0-36.5); MEAN CORPUSCULAR VOLUME 94.7 FL (78-98); MEAN PLATELET VOLUME 9.1 FL (7.4-10.4); MONOCYTES % (AUTO) 7.5 % (2-12); NEUTROPHILS # (AUTO) 10.2 X10'3 (1.8-7.7); NEUTROPHILS % (AUTO) 78.5 % (42-75); PLATELET COUNT 173 X10'3 (140-440); RED BLOOD COUNT 3.16 X10'6 (4.70-6.10); RED CELL DISTRIBUTION WIDTH 15.2 % (11.5-14.5)
[2018-08-27 04:52] LABS: ALBUMIN 2.9 G/DL (3.4-5.0); ANION GAP 8 (8-16); BLOOD UREA NITROGEN 20 MG/DL (7-18); BUN/CREATININE RATIO 26.7 (5.4-32.0); CHLORIDE 104 MMOL/L (99-107); CREATININE 0.75 MG/DL (0.60-1.10); GLUCOSE 105 MG/DL (70-104); MAGNESIUM 2.3 MG/DL (1.5-2.4); PHOSPHORUS 3.3 MG/DL (2.3-4.5); POTASSIUM 4.3 MMOL/L (3.5-5.1); SODIUM 141 MMOL/L (135-145); TOTAL CARBON DIOXIDE 29.3 MMOL/L (24-32); eGFR > 90 ML/MIN
[2018-08-27] MEDS: magnesium 2GM in 50ml NS 50 ML IV PRN (05:23)
[2018-08-27] MEDS: potassium Cl 20mEq/100mL bag 100 ML IV PRN ×2 (06:46→06:51)
[2018-08-27] MEDS: pantoprazole 40mg Tablet.DR PO SCH (06:50)
[2018-08-27] MEDS: tamsulosin 0.4mg capsule PO SCH (07:46)
[2018-08-27] MEDS: aspirin 325mg tablet, delayed-release (Ecotrin) PO SCH (07:46)
[2018-08-27] MEDS: finasteride 5mg tablet PO SCH (07:46)
[2018-08-27] MEDS: docusate sod 100mg capsule PO SCH ×2 (07:46→20:00)
[2018-08-27] MEDS: atorvastatin 10mg tablet PO SCH (07:46)
[2018-08-27] MEDS: folic acid 0.4mg tablet PO SCH (07:46)
[2018-08-27] MEDS: metoprolol tartrate 12.5mg (1/2 tablet) PO SCH ×2 (07:47→19:37)
[2018-08-27] MEDS: insulin Lispro (HumaLOG) vial - multi-dose SQ SCH ×3 (08:46→19:42)
[2018-08-27] MEDS: insulin glargine (Lantus) pen - multi-dose SQ SCH (21:12)
[2018-08-28] VITALS (10 sets, daily range): BP systolic 92–124; BP diastolic 61–76
[2018-08-28 05:22] LABS: BASOPHILS % (AUTO) 0.2 % (0-1); EOSINOPHILS # (AUTO) 0.3 X10'3 (0-0.9); EOSINOPHILS % (AUTO) 2.4 % (0-6); HEMATOCRIT 35.1 % (42.0-52.0); HEMOGLOBIN 11.6 g/dl (14.0-17.9); LYMPHOCYTES # (AUTO) 2.1 X10'3 (1.1-4.8); LYMPHOCYTES % (AUTO) 19.7 % (21-51); MEAN CORPUSCULAR HEMOGLOBIN 31.4 PG (27.0-31.0); MEAN CORPUSCULAR HGB CONC 33.1 % (33.0-36.5); MEAN PLATELET VOLUME 8.8 FL (7.4-10.4); MONOCYTES # (AUTO) 0.8 X10'3 (0-0.9); MONOCYTES % (AUTO) 7.9 % (2-12); NEUTROPHILS # (AUTO) 7.3 X10'3 (1.8-7.7); NEUTROPHILS % (AUTO) 69.8 % (42-75); PLATELET COUNT 224 X10'3 (140-440); WHITE BLOOD COUNT 10.5 X10'3 (4.5-11.0)
[2018-08-28 05:43] LABS: ALBUMIN 3.1 G/DL (3.4-5.0); ANION GAP 9 (8-16); BLOOD UREA NITROGEN 21 MG/DL (7-18); BUN/CREATININE RATIO 25.6 (5.4-32.0); CALCIUM 8.6 MG/DL (8.5-10.1); CHLORIDE 104 MMOL/L (99-107); CREATININE 0.82 MG/DL (0.60-1.10); GLUCOSE 109 MG/DL (70-104); MAGNESIUM 2.1 MG/DL (1.5-2.4); PHOSPHORUS 3.9 MG/DL (2.3-4.5); POTASSIUM 4.1 MMOL/L (3.5-5.1); SODIUM 141 MMOL/L (135-145); TOTAL CARBON DIOXIDE 28.5 MMOL/L (24-32); eGFR > 90 ML/MIN
[2018-08-28] MEDS: metoprolol tartrate 12.5mg (1/2 tablet) PO SCH (07:06)
[2018-08-28] MEDS: tamsulosin 0.4mg capsule PO SCH (07:06)
[2018-08-28] MEDS: folic acid 0.4mg tablet PO SCH (07:06)
[2018-08-28] MEDS: finasteride 5mg tablet PO SCH (07:06)
[2018-08-28] MEDS: docusate sod 100mg capsule PO SCH (07:06)
[2018-08-28] MEDS: pantoprazole 40mg Tablet.DR PO SCH (07:07)
[2018-08-28] MEDS: atorvastatin 10mg tablet PO SCH (07:07)
[2018-08-28] MEDS: sodium chloride 0.45% 1,000 ML IV SCH (07:18)
[2018-08-28] MEDS: potassium Cl 20mEq/100mL bag 100 ML IV PRN (07:26)
[2018-08-28] MEDS: magnesium 2GM in 50ml NS 50 ML IV PRN (07:26)
[2018-08-28] MEDS ORDERED: MAGN296S50 PO (07:27)
[2018-08-28] MEDS ORDERED: COL100C PO (07:27)
[2018-08-28] MEDS ORDERED: METO25TA6 PO (07:27)
[2018-08-28] MEDS ORDERED: HYDR-4383 PO (07:27)
[2018-08-28] MEDS ORDERED: ATOR10TA PO (07:27)
[2018-08-28] MEDS ORDERED: aspirin 81mg tablet.DR PO SCH (08:00)
== END 2018-08-28 09:42 | disposition home health service (06) | DRG 231 ==
LOC: ER 11:22 → ICU 2S 13:25 → CICU 2S 08-24 09:25
PROVIDERS: ADMIT Internal Medicine Cardiovascular Disease; ATTEND Thoracic Surgery (Cardiothoracic Vascular Surgery)
PROC: 027034Z Dilation of Coronary Artery, One Artery with Drug-eluting Intraluminal Device, Percutaneous Approach (ICD-10-PCS; 2018-08-19)
PROC: 4A023N7 Measurement of Cardiac Sampling and Pressure, Left Heart, Percutaneous Approach (ICD-10-PCS; 2018-08-19)
PROC: B2111ZZ Fluoroscopy of Multiple Coronary Arteries using Low Osmolar Contrast (ICD-10-PCS; 2018-08-19)
PROC: B2151ZZ Fluoroscopy of Left Heart using Low Osmolar Contrast (ICD-10-PCS; 2018-08-19)
PROC: B3111ZZ Fluoroscopy of Right Brachiocephalic-Subclavian Artery using Low Osmolar Contrast (ICD-10-PCS; 2018-08-19)
PROC: B3121ZZ Fluoroscopy of Left Subclavian Artery using Low Osmolar Contrast (ICD-10-PCS; 2018-08-19)
PROC: B41F1ZZ Fluoroscopy of Right Lower Extremity Arteries using Low Osmolar Contrast (ICD-10-PCS; 2018-08-19)
PROC: 02100Z9 Bypass Coronary Artery, One Artery from Left Internal Mammary, Open Approach (ICD-10-PCS; 2018-08-24)
PROC: 021109W Bypass Coronary Artery, Two Arteries from Aorta with Autologous Venous Tissue, Open Approach (ICD-10-PCS; 2018-08-24)
PROC: 06BQ4ZZ Excision of Left Saphenous Vein, Percutaneous Endoscopic Approach (ICD-10-PCS; 2018-08-24)
PROC: 06BP4ZZ Excision of Right Saphenous Vein, Percutaneous Endoscopic Approach (ICD-10-PCS; 2018-08-24)
PROC: 02HP32Z Insertion of Monitoring Device into Pulmonary Trunk, Percutaneous Approach (ICD-10-PCS; 2018-08-24)
PROC: 02HV33Z Insertion of Infusion Device into Superior Vena Cava, Percutaneous Approach (ICD-10-PCS; 2018-08-24)
PROC: B548ZZA Ultrasonography of Superior Vena Cava, Guidance (ICD-10-PCS; 2018-08-24)
PROC: 5A1221Z Performance of Cardiac Output, Continuous (ICD-10-PCS; 2018-08-24)
PROC: B24BZZ4 Ultrasonography of Heart with Aorta, Transesophageal (ICD-10-PCS; 2018-08-24)
PROC: 4A133B3 Monitoring of Arterial Pressure, Pulmonary, Percutaneous Approach (ICD-10-PCS; principal; 2018-08-24 06:35)
DX: I21.09 ST elevation (STEMI) myocardial infarction involving other coronary artery of anterior wall (principal); I50.41 Acute combined systolic (congestive) and diastolic (congestive) heart failure; I25.10 Atherosclerotic heart disease of native coronary artery without angina pectoris; E11.9 Type 2 diabetes mellitus without complications; I25.5 Ischemic cardiomyopathy; N40.0 Benign prostatic hyperplasia without lower urinary tract symptoms; Z79.899 Other long term (current) drug therapy; Z79.82 Long term (current) use of aspirin; Z87.891 Personal history of nicotine dependence
CPT/HCPCS: 0232T; 93312; 93325; 93458; 96374; 96375; 99291; C9606; 36415; 36600; 71045; 80048; 80053; 80061; 81001; 82330; 82435; 82803; 82947; 82948; 83036; 83735; 83880; 84100; 84132; 84295; 84484; 85018; 85025; 85027; 85347; 85384; 85576; 85610; 85730; 86885; 86900; 86901; 86920; 87070; 88305; 93005; 93880; 93930; 93970; 94002; 94010; 94668; 94760; 97110; 97116; 97161; 97530; 99152; 99153; A6255; A6257; A6258; A6402; A6449; A7000; A7048; C1725; C1751; C1760; C1769; C1874; C1887; C1894; C9113; G0378; J0690; J0780; J1644; J1815; J1940; J2001; J2060; J2150; J2250; J2270; J2405; J2440; J2720; J2930; J3010; J3246; J3370; J3475; J3480; J3490; J7030; J7120; P9045; P9047; Q9967

== ENCOUNTER 2019-12-14 15:09 | Emergency (ER) | payer MEDICARE ==
[~2019-12-14] VITALS: Ht 170.2 cm; Wt 76.4 kg
[~2019-12-14 15:09] MED LIST: ASPI-611 PO; ATOR10TA PO; COL100C PO; FINA5TAB11 PO; FLO0.4C PO; FOLI0.4T14 PO; HYDR-4383 PO; MAGN296S70 PO; METH2.5T PO; METO25TA6 PO
[2019-12-14 15:13] VITALS: BP 131/68
[2019-12-14] MEDS ORDERED: AMOX-117 PO (15:22)
[2019-12-14] MEDS ORDERED: PRED20TA PO (15:22)
[2019-12-14] MEDS ORDERED: BENZ-16 PO (15:22)
[2019-12-14] MEDS ORDERED: ALBU8.5H8 IH (15:22)
== END 2019-12-14 15:49 | disposition home or self-care (01) ==
LOC: ER 15:10
DX: J44.9 Chronic obstructive pulmonary disease, unspecified (principal); E11.9 Type 2 diabetes mellitus without complications; Z79.2 Long term (current) use of antibiotics; Z79.82 Long term (current) use of aspirin; Z79.899 Other long term (current) drug therapy
CPT/HCPCS: 99283

== ENCOUNTER 2021-07-21 09:39 | Day surgery (SDC) | payer MEDICARE ==
[2021-07-15 11:16] LABS: BASOPHILS % (AUTO) 0.4 % (0-1); EOSINOPHILS # (AUTO) 0.1 X10'3 (0-0.9); EOSINOPHILS % (AUTO) 1.3 % (0-6); LYMPHOCYTES # (AUTO) 1.6 X10'3 (1.1-4.8); LYMPHOCYTES % (AUTO) 29.2 % (21-51); MEAN CORPUSCULAR HEMOGLOBIN 30.9 PG (27.0-31.0); MEAN CORPUSCULAR HGB CONC 33.1 g/dL (33.0-36.5); MEAN CORPUSCULAR VOLUME 93.3 FL (78-98); MEAN PLATELET VOLUME 8.4 FL (7.4-10.4); MONOCYTES # (AUTO) 0.4 X10'3 (0-0.9); MONOCYTES % (AUTO) 7.8 % (2-12); NEUTROPHILS # (AUTO) 3.3 X10'3 (1.8-7.7); NEUTROPHILS % (AUTO) 61.3 % (42-75); PRE OP HEMATOCRIT 46.6 % (42.0-52.0); PRE OP HEMOGLOBIN 15.4 g/dL (14.0-17.9); PRE OP PLATELET COUNT 188 X10'3 (140-440); RED CELL DISTRIBUTION WIDTH 13.8 % (11.5-14.5)
[2021-07-15 11:29] LABS: ALBUMIN/GLOBULIN RATIO 1.1 (1.1-1.5); ALKALINE PHOSPHATASE 100 IU/L (46-116); BLOOD UREA NITROGEN 14 MG/DL (7-18); BUN/CREATININE RATIO 16.1 (5.4-32.0); CALCIUM 8.7 MG/DL (8.5-10.1); CHLORIDE 106 MMOL/L (99-107); CREATININE 0.87 MG/DL (0.60-1.10); PRE OP ALT 26 U/L (30-65); PRE OP ANION GAP 11 (8-16); PRE OP AST 16 U/L (10-37); PRE OP BILIRUB, TOTAL 1.1 MG/DL (0.0-1.0); PRE OP GLUCOSE 169 MG/DL (70-104); PRE OP POTASSIUM 3.9 MMOL/L (3.4-5.1); PRE OP SODIUM 146 MMOL/L (135-145); TOTAL CARBON DIOXIDE 29.5 MMOL/L (24-32); TOTAL PROTEIN 7.8 G/DL (6.4-8.2); eGFR 86 ML/MIN
[~2021-07-21] VITALS: Ht 170.2 cm; Wt 78.7 kg
[2021-07-21] VITALS (7 sets, daily range): BP systolic 131–153; BP diastolic 66–75
[~2021-07-21 09:39] MED LIST changes: +BUPIVAcaine/PF 2.5 mg/ml (0.25%) 30ml vial ONE; -COL100C PO; +DOCUMENT DATE & TIME OF BETA-BLOCKER PO ONE; -FOLI0.4T14 PO; -HYDR-4383 PO; -MAGN296S70 PO; -METH2.5T PO; +cefazolin/dext.iso 2gm/50ml 50 ML IV ONE; +famotidine 20mg tablet PO ONE; +ringers solution, lacted 1,000 ML IV SCH
[2021-07-21] MEDS ORDERED: morphine 4 MG/ML inj SYRINge IV PRN (12:55)
[2021-07-21] MEDS ORDERED: fentaNYL/PF 50MCG/1 ML 2ML syringe IV PRN ×2 (12:55)
[2021-07-21] MEDS ORDERED: ringers solution, lacted 1,000 ML IV SCH (12:55)
[2021-07-21] MEDS ORDERED: ondansetron/PF 4mg/2ml inj IV PRN (12:55)
[2021-07-21] MEDS ORDERED: labetalol 20mg/4ml (5mg/ml) syringe IV PRN (12:55)
[2021-07-21] MEDS ORDERED: morphine 2 MG/ML inj. syringe IV PRN (12:55)
[2021-07-21] MEDS ORDERED: hydrALAZINE 20mg/ml inj. IV PRN (12:55)
[2021-07-21] MEDS ORDERED: BUPIVAcaine/PF 2.5mg/ml (0.25%) 10ml vial IJ ONE (13:20)
--- NOTE | 2021-07-21 13:30 | NUR ---
Received from OR via [facility] IN STABLE CONDITION , accompanied by Anesthesiologist and FLOORING MECHANIC report given by FLOORING MECHANIC AND Anesthesiolgist. Addendum: 07/21/21 at 1348 by Rohini Sullivan RN Amended: Links added.
--- NOTE | 2021-07-21 14:40 | NUR ---
PATIENT DISCHARGED FROM PACU IN STABLE CONDITION AFTER WRITTEN AND VERBAL DISCHARGE INSTRUCTIONS GIVEN. PATIENT GAVE VERBAL UNDERSTANDING OF INSTRUCTIONS GIVEN. PATIENT LEFT FACILITY VIA WHEELCHAIR WITH RN. Addendum: 07/21/21 at 1457 by Rohini Sullivan RN Amended: Links added.
== END 2021-07-21 14:40 | disposition home or self-care (01) ==
LOC: PAS 09:39
PROVIDERS: ATTEND Orthopaedic Surgery Hand Surgery
DX: G56.01 Carpal tunnel syndrome, right upper limb (principal); M19.011 Primary osteoarthritis, right shoulder; M19.032 Primary osteoarthritis, left wrist; I25.2 Old myocardial infarction; E11.9 Type 2 diabetes mellitus without complications; N40.0 Benign prostatic hyperplasia without lower urinary tract symptoms; I25.10 Atherosclerotic heart disease of native coronary artery without angina pectoris; Z98.41 Cataract extraction status, right eye; Z20.822 Contact with and (suspected) exposure to COVID-19; Z79.899 Other long term (current) drug therapy; Z98.42 Cataract extraction status, left eye; Z98.890 Other specified postprocedural states; Z95.1 Presence of aortocoronary bypass graft; Z87.891 Personal history of nicotine dependence; Z95.5 Presence of coronary angioplasty implant and graft; Z82.49 Family history of ischemic heart disease and other diseases of the circulatory system; Z83.3 Family history of diabetes mellitus; Z80.8 Family history of malignant neoplasm of other organs or systems
CPT/HCPCS: 29848; 36415; 80053; 82948; 85025; 93005; J3490; U0003; U0005; Z7506; Z7512; A4215; A7000; J7120

== ENCOUNTER 2023-11-01 05:49 | Day surgery (SDC) | payer MEDICARE ==
[2023-10-26 16:25] LABS: BASOPHILS % (AUTO) 0.5 % (0-1); EOSINOPHILS # (AUTO) 0.2 X10'3 (0-0.9); EOSINOPHILS % (AUTO) 2.8 % (0-6); LYMPHOCYTES # (AUTO) 2.1 X10'3 (1.1-4.8); LYMPHOCYTES % (AUTO) 34.3 % (21-51); MEAN CORPUSCULAR HGB CONC 33.5 g/dL (33.0-36.5); MEAN CORPUSCULAR VOLUME 89.6 FL (78-98); MEAN PLATELET VOLUME 8.6 FL (7.4-10.4); MONOCYTES # (AUTO) 0.5 X10'3 (0-0.9); MONOCYTES % (AUTO) 8.3 % (2-12); NEUTROPHILS # (AUTO) 3.3 X10'3 (1.8-7.7); NEUTROPHILS % (AUTO) 54.1 % (42-75); PRE OP HEMATOCRIT 42.3 % (42.0-52.0); PRE OP HEMOGLOBIN 14.2 g/dL (14.0-17.9); PRE OP PLATELET COUNT 163 X10'3 (140-440); RED BLOOD COUNT 4.72 X10'6 (4.70-6.10); RED CELL DISTRIBUTION WIDTH 14.3 % (11.5-14.5)
[2023-10-26 16:41] LABS: ALBUMIN 3.6 G/DL (3.4-5.0); ALKALINE PHOSPHATASE 88 IU/L (46-116); BLOOD UREA NITROGEN 18 MG/DL (7-18); BUN/CREATININE RATIO 19.1 (10.0-20.0); CALCIUM 8.6 MG/DL (8.5-10.1); CHLORIDE 106 MMOL/L (99-107); CREATININE 0.94 MG/DL (0.60-1.10); PRE OP ALT 21 U/L (30-65); PRE OP ANION GAP 5 (8-16); PRE OP AST 17 U/L (10-37); PRE OP BILIRUB, TOTAL 0.8 MG/DL (0.0-1.0); PRE OP GLUCOSE 116 MG/DL (70-104); PRE OP POTASSIUM 3.8 MMOL/L (3.4-5.1); PRE OP SODIUM 142 MMOL/L (135-145); TOTAL CARBON DIOXIDE 30.8 MMOL/L (24-32); TOTAL PROTEIN 7.3 G/DL (6.4-8.2); eGFR 78 ML/MIN
[2023-11-01] VITALS (19 sets, daily range): BP systolic 113–136; BP diastolic 61–98; PULSE 56–68; RESP 11–21; TEMP 97.3; O2SAT 91–99
[~2023-11-01] VITALS: Ht 170.2 cm; Wt 72.1 kg
[2023-11-01] MEDS: cefazolin 2gm/D5W 100mL 100 ML IV ONE (05:30)
[~2023-11-01 05:49] MED LIST changes: -ASPI-611 PO; +BETA1TAB20 PO; -BUPIVAcaine/PF 2.5 mg/ml (0.25%) 30ml vial ONE; -DOCUMENT DATE & TIME OF BETA-BLOCKER PO ONE; +IBUP-1984 PO; +LYR75C PO; -cefazolin/dext.iso 2gm/50ml 50 ML IV ONE; -famotidine 20mg tablet PO ONE; -ringers solution, lacted 1,000 ML IV SCH
[2023-11-01] MEDS: ringers solution, lacted 1,000 ML IV SCH (06:32)
[2023-11-01] MEDS: famotidine 20mg tablet PO ONE (06:32)
[2023-11-01] MEDS ORDERED: BUPIVAcaine/PF 2.5mg/ml (0.25%) 10ml vial ONE (07:09)
[2023-11-01] MEDS ORDERED: sevoflurane 250ml liquid IH ONE (07:56)
[2023-11-01] MEDS ORDERED: MIDAZolam 1 MG/ML 5ML VIAL ONE (08:01)
[2023-11-01] MEDS ORDERED: fentaNYL/PF 50MCG/1 ML 2ML syringe ONE (08:01)
[2023-11-01] MEDS ORDERED: cloNIDine hcl/PF 100mcg/ml inj ONE (08:04)
[2023-11-01] MEDS ORDERED: ROPIVAcaine 0.5% (5mg/ml) 30ml vial ONE (08:08)
[2023-11-01] MEDS ORDERED: LIDOcaine 1%/PF 5ML 10 MG/ML VIAL ONE (08:08)
[2023-11-01] MEDS ORDERED: LIDOcaine 2% (20mg/ml) 5ml vial ONE (08:08)
[2023-11-01] MEDS ORDERED: dexamethasone sod phosphate 4mg/ml inj. ONE (08:08)
[2023-11-01] MEDS ORDERED: morphine 2 MG/ML inj. syringe IV PRN (08:55)
[2023-11-01] MEDS ORDERED: ondansetron/PF 4mg/2ml inj IV PRN (08:55)
[2023-11-01] MEDS ORDERED: labetalol 20mg/4ml (5mg/ml) syringe IV PRN (08:55)
[2023-11-01] MEDS ORDERED: ringers solution, lacted 1,000 ML IV SCH (08:55)
[2023-11-01] MEDS ORDERED: proCHLORperazine 10 MG/2 ml inj IV PRN (08:55)
[2023-11-01] MEDS ORDERED: enalaprilat dihydrate 2.5mg/2ml vial IV PRN (08:55)
[2023-11-01] MEDS ORDERED: meperidine/PF 25mg/ml syringe IV PRN ×3 (08:55)
[2023-11-01] MEDS ORDERED: morphine 4 MG/ML inj SYRINge IV PRN (08:55)
[2023-11-01] MEDS ORDERED: propofol inj 20 ML IV ONE (09:24)
[2023-11-01] MEDS ORDERED: ondansetron/PF 4mg/2ml inj ONE (09:25)
== END 2023-11-01 12:44 | disposition home or self-care (01) ==
LOC: PAS 05:49
PROVIDERS: ATTEND Orthopaedic Surgery Hand Surgery
DX: M19.031 Primary osteoarthritis, right wrist (principal); J44.9 Chronic obstructive pulmonary disease, unspecified; I25.10 Atherosclerotic heart disease of native coronary artery without angina pectoris; E11.9 Type 2 diabetes mellitus without complications; G89.4 Chronic pain syndrome; G89.18 Other acute postprocedural pain; I25.2 Old myocardial infarction; Z98.41 Cataract extraction status, right eye; Z98.42 Cataract extraction status, left eye; Z95.1 Presence of aortocoronary bypass graft; Z95.5 Presence of coronary angioplasty implant and graft; Z98.890 Other specified postprocedural states; Z87.891 Personal history of nicotine dependence
CPT/HCPCS: 25800; 36415; 64417; 80053; 82948; 85025; C1713; J0690; J0735; J1100; J2250; J2405; J2704; J2795; J3010; J3490; J7030; J7120; Z7506; Z7508; Z7512; A4565; A4615; A4618; A7000; C1769